=== PATIENT | male | born 1935 | race Caucasian/White ===

== ENCOUNTER 2022-05-01 05:23 | Observation (INO) ==
--- NOTE | 2022-04-26 10:02 | Anesthesiology Consultation ---
Date of Service April 26, 2022 Assessment & Plan (1) Encounter for pre-operative examination: COVID screening: Per assessment on 04/26: No known COVID-19 positive contacts or current COVID-19 related symptoms. Travel screen negative. Patient vaccinated. Surgeon arranging preop COVID testing. Awaiting results. Chart Review Chart Review: Acceptable Risk for Surgery and Patient NOT seen in Pre Admission Testing History Surgery Operation Date: 05/01/22 07:15 Proposed Procedures p TURP (Transurethral Resection of the Prostate) - Brent Centeno DO s Cystolithopaxy - Brent Centeno DO Height/Weight Height: 5 ft 6 in Weight: 62.596 kg Allergies Allergy/AdvReac Type Severity Reaction Status Date / Time No Known Allergies Allergy Verified 04/26/22 09:01 Medications Home Medications Medication Instructions Recorded Confirmed Last Taken aspirin 81 mg capsule 81 mg PO QAM 04/26/22 04/26/22 Unknown tamsulosin 0.4 mg capsule (Flomax) 0.4 mg PO QAM 04/26/22 04/26/22 Unknown Past Medical History Medical History Bladder calculi BPH (benign prostatic hyperplasia) Indwelling urethral catheter present Past Family History Family History Mother Colon cancer Father Myocardial infarction Past Surgical History Surgical History History of appendectomy History of colonoscopy Hx of inguinal hernia repair Hx of tonsillectomy Social History Smoking Status: Never smoker Do You Dip or Chew Tobacco: No Hx Alcohol Use: No Hx Substance Use: No substance use type: does not use Lab Results Anesthesia Preop Results Results Anesthesia Widget: WBC 8.18 K/uL (4.8-10.8) 04/25/22 Hgb 15.0 g/dL (14.0-18.0) 04/25/22 Hct 44.2 % (42-52) 04/25/22 Plt 204 K/uL (130-400) 04/25/22 Na 139 mmol/L (136-145) 04/25/22 K 4.1 mmol/L (3.5-5.1) 04/25/22 Cl 106 mmol/L (98-107) 04/25/22 CO2 27 mmol/L (21-32) 04/25/22 BUN 28 mg/dl (6-23) H 04/25/22 Creat 1.10 mg/dl (0.6-1.4) 04/25/22 Glucose Level 96 mg/dl (70-99(Fasting)) 04/25/22 Testing Electrocardiogram Date: 04/25/22 Findings: + NSR @ (72) Chest X-Ray Date: 04/25/22 FINDINGS: The cardiomediastinal and hilar silhouettes are within normal limits. There is no pneumothorax, pleural effusion, airspace consolidation or overt pulmonary edema. Spondylitic spurring of the spine. 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 The bones of the chest appear grossly intact. IMPRESSION: No acute process.
[2022-05-01] MEDS ORDERED: LR 15ML/HR IV SCH (06:00)
[2022-05-01] MEDS ORDERED: ceFAZolin 2000MG 2,000 MG/15 ML SYR IV SCH (06:00)
[2022-05-01] MEDS ORDERED: fentaNYL citrate 100 MCG/2 ML VIAL ONE ×2 (06:26→08:41)
[2022-05-01] MEDS ORDERED: PROPOFOL IV EMULSION 10 MG/ML 20 ML VIAL IV ONE (06:26)
[2022-05-01] MEDS ORDERED: LIDOCAINE 2% 2 ML VIAL/AMP(20MG/ML) INFIL ONE (06:26)
[2022-05-01] MEDS ORDERED: ONDANSETRON INJ 2 MG/ML 2 ML VIAL ONE (06:27)
[2022-05-01] MEDS ORDERED: ATROPINE SULFATE 0.1 MG/ML 10ML SYR IV PRN (06:41)
[2022-05-01] MEDS ORDERED: ePHEDrine sulfate 50 MG/ML AMP IV PRN (06:41)
[2022-05-01] MEDS ORDERED: ONDANSETRON INJ 2 MG/ML 2 ML VIAL IV PRN ×2 (06:41→12:08)
[2022-05-01] MEDS ORDERED: fentaNYL citrate 100 MCG/2 ML VIAL IV PRN (06:41)
--- NOTE | 2022-05-01 06:45 | History & Physical Bridge Note ---
Date of Service May 01, 2022 History & Physical Bridge Note I have examined the patient, reviewed the History & Physical and in the interval since the performance of the History & Physical I have noted the following changes of clinical significance: no changes noted
[2022-05-01] MEDS ORDERED: PHENYLEPHRINE 100MCG/ML 5ML SYR ONE (07:17)
[2022-05-01] MEDS ORDERED: PHENYLEPHRINE HCL 10 MG/ML VIAL ONE (08:44)
[2022-05-01] MEDS ORDERED: ePHEDrine sulfate 50 MG/ML AMP ONE (09:13)
--- NOTE | 2022-05-01 10:37 | Operative Report ---
[facility] Post Operative Report Pre & Post Diagnosis Operation Date: 05/01/22 07:00 Pre-Op Diagnosis: Benign Prostatic Hyperplasia Without Urinary Obstruction, Bladder Stones Post-Op Diagnosis: Benign Prostatic Hyperplasia Without Urinary Obstruction, Bladder Stones I identified the patient and participated in the time-out.: Yes Procedure Operation Date: 05/01/22 07:00 Actual Procedures p Transurethral Resection of the Prostate with Cystolitholapaxy - Brent Centeno DO Surgeon Brent Centeno, II, DO Key Account Director None Estimated Blood Loss 10 Findings Consistent with Post-Op Diagnosis Extremely large Prostate with obstruction. Numerous stones with 5 stones greater than 2.5 cm each. Largest approx 3.8 cm in size. Specimens Prostate adenoma. Bladder stones Drains 24Fr Buell Catheter Anesthesia Type General Complications none Disposition Disposition: Recovery Room Indications Patient with obstruction due to prostate enlargement. Multiple bladder stones throughout bladder with largest greater than 3.5 centimeters. Risks and benefits discussed at length. Description of Procedure Patient was consented and brought back to the operating room. Patient was placed under anesthesia in the supine position and moved to the dorsal lithotomy position. Patient was prepped and draped in the regular sterile fashion. A time out was completed. A 30degree Cystoscope was placed into the bladder and the entire bladder was examined. The UO's were identified as well as the bladder neck, trigone, dome, and the other important landmarks. The prostatic urethra and large lobes/adenoma was assessed and the veru and bladder neck identified and area/size was assessed. Numerous bladder stones were discovered. Largest was over 3-1/2 cm. Had more than 5 stones greater than 2-1/2 cm. Patient also had some areas of significant edema. Images were captured of 1 such area likely due to the stone disease. Patient had severe obstructive issues due to the prostate causing considerable projection of prostate into the bladder and severe narrowing of the prostatic urethra. The laser bridge was selected and utilized with the 1000 m laser fiber. The stones were destroyed to small pieces. A significant amount of time was necessary in order to break up all the stone pieces in order to get them to a size that was able to be flushed from the bladder. Once the stones were broken up completely the fragments were removed. All fragments were removed from the bladder. The scope was then used to further assess the prostatic urethra and bladder neck. The resection scope was placed and the fine bipolar loop was selected. Starting at the 5 and 7 o'clock positions, a channel was created from bladder neck to the veru. A severe amount of tissue was noted in the median lobe. Numerous pockets of debris and stone material were discovered throughout the prostatic tissue at the junctions between the median lobe and the lateral lobes. Resection was then taken from the 1 and 11 o'clock position sweeping down to the channel created. Resection was taken down to capsular fibers. A significant amount of prostate was resected and multiple irrigations were necessary throughout the process. A moderate amount of tissue was noted in the anterior portion and this was resected down with care taken to avoid deep resection of the anterior portion. A large amount of tissue had been resected. A very large wound bed was appreciated. At this point the loop device was exchanged for a button in order to allow smoothing of the resection bed with vaporization as well as coagulation with the button. All bleeding was controlled. Some larger vessels were noted. The UO bilaterally was assessed. These were in close proximity to the bladder neck however did not appear to have significant issues and had not been encroached upon during the resection. The Specimen was completely removed and sent for analysis. The resection bed and any bleeding areas were fulgurated/cauterized and the entire area inspected. All bleeding was controlled. The bladder was inspected a final time. The bladder was emptied and irrigated. All specimen and debris was removed. The scope was removed with the bladder partially full. A catheter was placed and balloon elevated. This was easily irrigated. The patient was cleaned, aroused from anesthesia, and transferred to the pacu in stable condition having tolerated the procedure well with no complications. I was present and participated in all aspects of the procedure. The patient will be monitored in the PACU until transferred. We will plan to maintain catheter overnight with continuous bladder irrigation. We will plan to have catheter removal in approximately 10 to 14 days. Will likely be discharged with antibiotics. We will continue to monitor closely. I attest to the content of the Intraoperative Record and any orders documented therein. Any exceptions are noted below.
[2022-05-01] MEDS ORDERED: ceFAZolin 2000MG 2,000 MG/15 ML SYR IV ONE (10:52)
[2022-05-01] MEDS ORDERED: PHENAZOPYRIDINE HCL 200 MG TAB PO PRN (12:08)
[2022-05-01] MEDS ORDERED: MoRPHine SULFATE 2 MG/ML CARP IV PRN (12:08)
[2022-05-01] MEDS: SODIUM CHLORIDE 0.9% 1000ML 1,000 ML IV SCH (12:14)
[2022-05-01 12:42] LABS: Basophils # (auto) 0.02 K/uL (0-0.2); Basophils % (auto) 0.1 %; Eosinophils # (auto) 0.05 K/uL (0-0.50); Eosinophils % (auto) 0.3 %; Hematocrit (blood only) 32.6 % (40.1-51.0); Hemoglobin 10.4 g/dl (14.0-18.0); Immature Granulocytes # (auto) 0.08 K/uL (0.00-0.02); Immature Granulocytes % (auto) 0.5 %; Lymphocytes # (auto) 2.36 K/uL (1.2-3.4); Lymphocytes % (auto) 13.8 %; Mean Corpuscular Hemoglobin 31.1 pg (25.0-34.0); Mean Corpuscular Hgb Conc 31.9 g/dL (32.0-36.0); Mean Corpuscular Volume 97.6 fL (80.0-100.0); Mean Platelet Volume 10.8 fL (9.4-12.4); Monocytes # (auto) 1.02 K/uL (0.24-0.82); Neutrophils % (auto) 79.3 %; Platelet Count 164 K/uL (130-400); RDW Coefficient of Variation 12.7 % (11.5-14.5); RDW Standard Deviation 45.3 fL (36.4-46.3); Red Blood Count 3.34 M/uL (4.63-6.08); White Blood Count 17.13 K/ul (4.8-10.8)
[2022-05-01 13:03] LABS: Albumin Globulin Ratio 1.6 (0.9-2); Albumin Level 2.6 gm/dl (3.4-5.0); BUN Creatinine Ratio 21.1 (10-20); Bilirubin,Total 0.5 mg/dl (0.2-1.0); Calcium 6.9 mg/dl (8.5-10.1); Creatinine Clr Calc Pharmacy 49.4 ml/min; Est GFR (African American) 83.1 ml/min; Est GFR (Non-African American) 71.7 ml/min; Globulin 1.6 gm/dl (2.5-4.0); Potassium 4.6 mmol/L (3.5-5.1); Total Protein 4.2 gm/dl (6.0-8.3)
--- NOTE | 2022-05-01 13:59 | Anesthesiology Progress Note ---
Date of Service May 01, 2022 Anesthesia Post Procedure Vital Signs Vital Signs: Temp Pulse Pulse Pulse Resp BP Pulse Ox 05/01/22 12:30 36.3 C L 80 16 114/81 97 05/01/22 12:08 05/01/22 12:00 36.1 C L 79 16 108/71 94 05/01/22 11:40 36.1 C L 81 21 115/78 98 05/01/22 11:30 78 16 111/70 96 05/01/22 11:20 77 16 100/61 96 05/01/22 11:10 81 15 92/64 L 88 L 05/01/22 11:00 84 22 94/67 L 94 05/01/22 10:50 89 14 102/66 96 05/01/22 10:40 96 H 19 99/76 L 94 05/01/22 10:30 90 16 113/77 97 05/01/22 10:22 36.2 C L 89 12 87/75 L 99 05/01/22 05:49 36.6 C 73 20 154/95 H 97 Pulse Ox 05/01/22 12:30 05/01/22 12:08 94 05/01/22 12:00 05/01/22 11:40 05/01/22 11:30 05/01/22 11:20 05/01/22 11:10 05/01/22 11:00 05/01/22 10:50 05/01/22 10:40 05/01/22 10:30 05/01/22 10:22 05/01/22 05:49 Notes Mental Status: alert / awake / arousable Patient Amnestic to Procedure: No Nausea / Vomiting: adequately controlled Pain: adequately controlled Airway Patency, RR, SpO2: stable & adequate BP & HR: stable & adequate Hydration State: stable & adequate Anesthetic Complications: no major complications apparent and Pt Satisfied with anesthetic care
[2022-05-01] MEDS: oxyCODONE/ACETAMINOPHEN 5mg/325mg TAB PO PRN ×2 (14:31→18:23)
[2022-05-01] MEDS: DOCUSATE SODIUM 100 MG CAP PO SCH (20:01)
[2022-05-02] MEDS: SODIUM CHLORIDE 0.9% 1000ML 1,000 ML IV SCH (01:31)
--- NOTE | 2022-05-02 08:20 | Urology Progress Note ---
Date of Service May 02, 2022 Assessment & Plan (1) BPH NOS w ur obs/LUTS: (2) Bladder stone: Plan: - Pt POD#1 s/p Transurethral Resection of the Prostate with Cystolitholapaxywith Dr. Centeno. - Doing well, progressing as expected. - Afebrile, lab work reviewed - creatinine 1.28, WBC 15.72, Hgb 8.8. - Tolerating PO diet. - 3 way Philip catheter intact, draining clear yellow urine with CBI on slow. - CBI clamped @ 0815, nursing aware - will reassess later this AM. - Maintain Philip catheter. - Encourage ambulation. - Will continue to follow. -Patient reassessed at 1200. Philip draining dark red urine without clot. CBI restarted on slow drip, urine returned to light pink in color. Maintain Philip catheter, can titrate CBI as needed. Will continue to monitor closely. Anticipate home with Philip catheter tomorrow morning presuming urine appropriate and he continues to progress as expected. Admission and Anticipated Discharge Date Admission Date: May 01, 2022 Subjective Patient examined at bedside this AM. Awake, resting in bed on arrival. No acute distress. Denies any pain or discomfort at present. Phliip catheter intact, draining clear yellow urine with CBI on slow. Tolerating diet. No nausea or vomiting. Overall feeling good, and eager to go home today. Review of Systems Constitutional: as per Subjective / HPI Gastrointestinal: as per Subjective / HPI Genitourinary: + as per Subjective / HPI Physical Exam Constitutional: cooperative and comfortable; no acute distress Respiratory: normal respiratory effort; no respiratory distress and no labored breathing Gastrointestinal (Abdomen): Inspection/Auscultation: abdomen normal to inspection; abdomen not distended Musculoskeletal: Head/Neck/Chest: normocephalic Skin: No visible rashes or lesions to exposed skin areas Neurologic: awake Psychiatric: Orientation: alert, oriented x 3 and cooperative Genitourinary: Philip catheter intact, draining clear yellow urine with CBI on slow. Results & Data ([facility]) Vital Signs (Past 12 Hours) Vital Signs Temp Pulse Resp BP Pulse Ox 05/02/22 07:31 36.6 C 93 H 18 123/76 93 05/02/22 03:28 36.6 C 95 H 16 120/75 92 05/01/22 22:14 36.6 C 95 H 18 128/58 L 93 PG Care Time/CCT Total # of Minutes Spent Total Time Spent with Patient: Total time spent is greater than 50% in coordination of care (as documented) at patient's floor/unit and/or counseling patient: Coding Level of Care Code None Diagnoses BPH NOS w ur obs/LUTS N40.1 Bladder stone N21.0
[2022-05-02 08:36] LABS: Hematocrit (blood only) 26.8 % (40.1-51.0); Hemoglobin 8.8 g/dl (14.0-18.0); Mean Corpuscular Hemoglobin 31.3 pg (25.0-34.0); Mean Corpuscular Hgb Conc 32.8 g/dL (32.0-36.0); Mean Corpuscular Volume 95.4 fL (80.0-100.0); Mean Platelet Volume 10.3 fL (9.4-12.4); Platelet Count 156 K/uL (130-400); RDW Standard Deviation 45.4 fL (36.4-46.3); Red Blood Count 2.81 M/uL (4.63-6.08); White Blood Count 15.72 K/ul (4.8-10.8)
[2022-05-02] MEDS: DOCUSATE SODIUM 100 MG CAP PO SCH ×2 (08:45→20:13)
[2022-05-02] MEDS: TAMSULOSIN HCL 0.4 MG CAP PO SCH (08:45)
[2022-05-02 09:15] LABS: BUN Creatinine Ratio 20.3 (10-20); Calcium 7.5 mg/dl (8.5-10.1); Creatinine Clr Calc Pharmacy 36.7 ml/min; Est GFR (African American) 57.9 ml/min; Potassium 4.4 mmol/L (3.5-5.1)
[2022-05-02] MEDS: oxyCODONE/ACETAMINOPHEN 5mg/325mg TAB PO PRN (13:05)
[2022-05-03] MEDS: DOCUSATE SODIUM 100 MG CAP PO SCH (07:35)
[2022-05-03] MEDS: TAMSULOSIN HCL 0.4 MG CAP PO SCH (07:35)
--- NOTE | 2022-05-03 09:08 | Urology Progress Note ---
Date of Service May 03, 2022 Assessment & Plan (1) BPH NOS w ur obs/LUTS: (2) Bladder stone: Plan - Pt POD#2 s/p Transurethral Resection of the Prostate with Cystolitholapaxywith Dr. Centeno. - Doing well, progressing as expected. - Afebrile, hemodynamically stable. - Labs reviewed- White count 10.54, hemoglobin 8.0, Creatinine 0.91. - Tolerating PO diet. - 3 way Batres catheter intact, draining clear yellow urine with CBI on slow drip. - CBI clamped @ 0900, nursing aware - will reassess later this AM. - Maintain Batres catheter. - Encourage ambulation. - Anticipate home with Batres catheter later today presuming urine appropriate and he continues to progress as expected. - Pt reassessed at 1300. Urine remains clear to light pink off CBI. He is feeling well and eager to go home. - Stable for discharge home today with batres catheter. Discharged instructions reviewed and orders placed. Follow-up appointments in place. Admission and Anticipated Discharge Date Admission Date: May 01, 2022 Subjective Patient examined at bedside this AM. Awake, sitting in bedside chair on arrival. No acute issues overnight. States he is feeling well overall. No fevers. Denies any pain or discomfort at present. Batres catheter intact, draining clear yellow urine with CBI on slow drip. Tolerating diet. Ambulating without issue. Review of Systems Constitutional: as per Subjective / HPI Gastrointestinal: as per Subjective / HPI Genitourinary: + as per Subjective / HPI Physical Exam Constitutional: cooperative and comfortable; no acute distress Respiratory: normal respiratory effort; no respiratory distress and no labored breathing Gastrointestinal (Abdomen): Inspection/Auscultation: abdomen normal to inspection; abdomen not distended Musculoskeletal: Head/Neck/Chest: normocephalic Neurologic: awake Psychiatric: Orientation: alert, oriented x 3 and cooperative Genitourinary: Batres catheter intact Results & Data ([facility]) Vital Signs (Past 12 Hours) Vital Signs Temp Pulse Resp BP Pulse Ox O2 Del Method 05/03/22 07:37 36.5 C 102 H 16 119/76 94 Room Air 05/02/22 20:27 Room Air 05/02/22 21:35 36.8 C 115 H 19 117/71 91 Room Air PG Care Time/CCT Total # of Minutes Spent Total Time Spent with Patient: Total time spent is greater than 50% in coordination of care (as documented) at patient's floor/unit and/or counseling patient: Coding Level of Care Code None Diagnoses BPH NOS w ur obs/LUTS N40.1 Bladder stone N21.0
[2022-05-03 11:33] LABS: Hematocrit (blood only) 23.8 % (40.1-51.0); Mean Corpuscular Hemoglobin 31.4 pg (25.0-34.0); Mean Corpuscular Hgb Conc 33.6 g/dL (32.0-36.0); Mean Corpuscular Volume 93.3 fL (80.0-100.0); Mean Platelet Volume 10.9 fL (9.4-12.4); Platelet Count 111 K/uL (130-400); RDW Coefficient of Variation 13.2 % (11.5-14.5); RDW Standard Deviation 45.1 fL (36.4-46.3); Red Blood Count 2.55 M/uL (4.63-6.08); White Blood Count 10.54 K/ul (4.8-10.8)
[2022-05-03 11:53] LABS: BUN Creatinine Ratio 23.1 (10-20); Calcium 8.1 mg/dl (8.5-10.1); Creatinine Clr Calc Pharmacy 51.6 ml/min; Est GFR (African American) 87.5 ml/min; Est GFR (Non-African American) 75.5 ml/min; Potassium 3.6 mmol/L (3.5-5.1)
--- NOTE | 2022-05-03 14:48 | Discharge Summary ---
Date of Service May 03, 2022 Admission HPI Per Admitting Provider 86-year-old male with urinary retention, bladder stones and BPH who presented for TURP and Cystolithopaxy. Admission Exam Per Admitting Provider General: Alert and oriented, no acute distress HEENT: Normocephalic, mucous membranes moist Pulmonary: Nonlabored respirations Abdomen: Nondistended Extremities: Moves all 4 spontaneously Neuro: No gross deficits Skin: Warm, dry, no rashes noted Principal Diagnosis Benign Prostatic Hyperplasia Without Urinary Obstruction, Bladder Stones Discharge Exam Constitutional: cooperative and comfortable; no acute distress Respiratory: normal respiratory effort; no respiratory distress and no labored breathing Gastrointestinal (Abdomen): Inspection/Auscultation: abdomen normal to inspection; abdomen not distended Musculoskeletal: Head/Neck/Chest: normocephalic Neurologic: awake Psychiatric: Orientation: alert, oriented x 3 and cooperative Genitourinary: Philip catheter intact Discharge Data Allergies Allergy/AdvReac Type Severity Reaction Status Date / Time No Known Allergies Allergy Verified 05/01/22 05:47 Procedures Performed Operation Date: 05/01/22 07:00 Actual Procedures p Transurethral Resection of the Prostate, (Not Applicable) - Brent Centeno DO s Cystolithopaxy(Not Applicable) - Brent Centeno DO Hospital Course (1) BPH NOS w ur obs/LUTS: (2) Bladder stone: Plan 86yo M admitted s/p TURP and cystolitholapaxy. Patient tolerated procedure very well. He had no acute issues postoperatively. His labs were stable and he had good urine output. CBI was clamped on postop day #1, however restarted on slow due to hematuria. Patient remained on slow CBI postop day #1. CBI clamped in the morning of postop day #2. Urine remained clear to light pink off CBI. Patient tolerated diet. Ambulated without issue. No reported pain. He was subsequently discharged home in stable condition on postop day #2 with Philip catheter. Postop follow-up appointments in place. Patient advised to resume his aspirin in 3 to 4 days given his urine remained clear to light pink. He was discharged with a course of antibiotics. All questions were answered. Total Time Total Time Spent Total Time Spent (In Minutes): 15 Discharge Plan Discharge Items Patient Disposition: Home - Self-Care Reason For Visit: BPH NOS w/ ur OBS/LUTS, Bladder Stones Discharge Diagnosis: BPH NOS w/ ur OBS/LUTS, Bladder Stones Condition on Discharge: Good Activity: Per Instructions section Lifting: No more than 25 pounds Bathing Comment: OK to shower. No tub baths or soaks. Sexual Activity: Wait until after follow-up appointment Exercise/Sports: Wait until after follow-up appointment Driving/Machine Use: Do not drive if taking prescription pain medication. Non-emergency contact: Surgeon and Urologist Call non-emergency contact if: you have any medication questions, your pain is not controlled, your pain is worsening and you have a fever Follow-up/Referrals: Brent Centeno DO [Physician] - 05/16/22 8:30 am (virtual check-in phone visit for path review between 9:00 am - 4:00 pm) [facility] [Primary Care Provider] - [facility],Nurse [FAKE FOR SCHEDULES] - 05/12/22 10:00 am Diet: Regular Addtl Attending Provider Instructions: Please take all medications as prescribed and keep all follow-ups as scheduled. Please call our office at [phone] with any questions, concerns or need to reschedule appointments for any reason. We are happy to assist you. You can resume your aspirin in 3-4 days given your urine remains clear to light pink in color. Please call the urology office with any questions or concerns. Tips for your recovery at home: Dont be alarmed by brownish or reddish blood or clots in your urine. This is a result of the procedure. This may occur off and on for weeks to months after the procedure but should continue to improve. Drink plenty of fluids during the day (enough to keep your urine very light colored). This will help keep a healthy flow of urine. Do not lift >25 lbs until your followup Avoid constipation. Please use a stool softener (Colace) for the first two weeks after your procedure Be sure to finish the antibiotics as prescribed. If you go home with a catheter, please wash tubing where it enters your body twice daily with mild soap (Dove or Dial). Once your catheter is removed, expect some blood in your urine and some burning when you urinate. You should have an appointment to have this removed, if you do not please call our office to arrange. Philip Catheter care: Keep the catheter well secured with either a leg back or leg strap with large bag. Empty your bag when it's about half full. You may notice some blood in the bag. This is normal after surgery and while the catheter is in place. Use mild soap (such as Dove or Dial) and water to wash the catheter and the head of your penis daily, or more frequently if needed. Return to your normal diet, we encourage good protein intake to promote healing. You may shower as normal. Please avoid tub baths or soaking until catheter removed and incisions well healed. Wearing sweat pants while you have the catheter is recommended, they will be more comfortable. Follow-up Your follow up appointments for having your catheter removed, and follow up w ith your physician should already be scheduled. If you have any questions regarding this, please contact our office. Your final pathology report will be discussed at your physician follow-up appointment. Call [facility] at [phone] right away if you have any of the following: Fever of 101F or higher, chills, nausea, or vomiting Your pain is not relieved with medication Heavy bleeding, clots, or bright red blood from the catheter Catheter that falls out or stops draining Foul-smelling discharge from your catheter Pending Studies at Discharge: Yes Studies:: pathology Stand-Alone Forms: [facility], Smoking Cessation Medications and DC Order Prescriptions: New docusate sodium [Colace] 100 mg capsule 100 mg PO BID Qty: 30 0RF Rx Instructions: Take twice daily for 2 weeks, then as needed thereafter cephalexin 500 mg capsule 500 mg PO BID 7 Days Qty: 14 0RF Continued tamsulosin [Flomax] 0.4 mg Capsule 0.4 mg PO QAM aspirin 81 mg Capsule 81 mg PO QAM Discharge Orders: Discharge Order (Routine); Ordered 05/03/22 Ordered By: Yana Loera Admission Data Admit Date/Time: 05/01/22 10:43 Attending Provider: Brent Centeno Admit Provider: Brent Centeno Primary Care Provider: PCP,NO Other Interventions: Discharge Summary Assessment (RN) Last Done: 05/03/22 13:56 Coding Level of Care Code D/C DAY MANAGEMENT <30 MINS Diagnoses BPH NOS w ur obs/LUTS N40.1 Bladder stone N21.0
[2022-05-04 04:12] LABS: Component 2 DNR; Source BLADDER STONES
== END 2022-05-03 15:07 | disposition home or self-care (01) ==
LOC: ASU 05:23 → 3W 05:23